=== PATIENT | female | born 2000 | race Caucasian/White ===

== ENCOUNTER 2023-06-11 01:55 | Inpatient (IN) | payer OTHER ==
[~2023-06-11] VITALS: Ht 172.7 cm; Wt 56.7 kg
[~2023-06-11 01:55] MED LIST: FERR-212 PO; PREN-543 PO
[2023-06-11] MEDS ORDERED: CARBOPROST 250 MCG/ML AMP IM PRN (02:25)
[2023-06-11] MEDS ORDERED: OXYTOCIN 20 UNITS in LACTATED RINGERS 1,000 ML IV SCH (02:25)
[2023-06-11] MEDS ORDERED: OXYTOCIN 10 UNITS/ML VIAL IM SCH (02:25)
[2023-06-11] MEDS ORDERED: METHYLERGONOVINE 0.2 MG/ML AMP IM PRN ×2 (02:25→07:30)
[2023-06-11] MEDS ORDERED: LACTATED RINGERS 500 ML IV ONE (02:25)
[2023-06-11] MEDS ORDERED: AMPICILLIN 2,000 MG in NACL 0.9% MINI-BAG PLUS 100 ML IV SCH (03:00)
[2023-06-11] MEDS: AMPICILLIN 2,000 MG VIAL ONE (03:00)
[2023-06-11 03:03] VITALS: RESP 18
[2023-06-11] MEDS: MORPHINE SULFATE 10 MG/ML VIAL IVP PRN (03:03)
[2023-06-11] MEDS: ONDANSETRON 4 MG/2 ML VIAL IVP PRN (03:11)
[2023-06-11 03:19] VITALS: BP 119/79; PULSE 73; TEMP 97.7
[2023-06-11 03:26] LABS: BASOPHILS % (AUTO) 0.4 % (0.0-2.0); EOSINOPHILS % (AUTO) 0.5 % (0.0-4.0); HEMATOCRIT 30.5 % (36-48); HEMOGLOBIN 10.2 g/dL (12.0-16.0); LYMPHOCYTES # (AUTO) 1.4 K/uL (2.5-16.5); MEAN CORPUSCULAR HEMOGLOBIN 26 pg (27-31); MEAN CORPUSCULAR HGB CONC 34 g/dL (33-37); MEAN CORPUSCULAR VOLUME 77.4 fL (80-94); MONOCYTES # (AUTO) 0.8 K/uL (0.8-1.0); NEUTROPHILS # (AUTO) 4.3 K/uL (1.8-7.7); NEUTROPHILS % (AUTO) 66.1 % (42.2-75.2); PLATELET COUNT (AUTO) 326 K/uL (140-450); RED BLOOD CELL COUNT(AUTO) 3.95 MIL/uL (4.20-5.40); RED CELL DISTRIBUTION WIDTH 18.3 % (11.6-13.7); WHITE BLOOD COUNT (AUTO) 6.5 K/uL (4.8-10.8)
[2023-06-11 03:41] LABS: APPEARANCE,URINE CLEAR (CLEAR); BILIRUBIN,URINE NEGATIVE (NEGATIVE); BLOOD, URINE TRACE-I (NEGATIVE); COLOR,URINE YELLOW (YELLOW); LEUKOCYTE ESTERASE ,URINE NEGATIVE (NEGATIVE); NITRITE, URINE NEGATIVE (NEGATIVE); PROTEIN,URINE NEGATIVE (NEGATIVE); UGLUCOSE NEGATIVE (NEGATIVE)
[2023-06-11] MEDS ORDERED: ROPIVACAINE 0.2%/NS PREMIX 200 ML EPI ONE (03:43)
[2023-06-11 03:55] LABS: CALCIUM 8.4 mg/dL (8.5-10.1); CARBON DIOXIDE 21.5 mmol/L (21-32); CREATININE 0.5 mg/dL (0.6-1.3); POTASSIUM 3.5 mmol/L (3.5-5.1)
[2023-06-11 03:56] LABS: ALBUMIN 2.2 g/dL (3.4-5.0)
[2023-06-11 03:59] LABS: INR 0.8 (0.8-1.2); PARTIAL THROMBOPLASTIN TIME 24.9 secs (22-35.6); PROTHROMBIN TIME 8.5 secs (10.8-13.4)
[2023-06-11 04:04] LABS: BACTERIA,URINE 10-30 (MOD) /HPF (None Seen); MUCUS,URINE 1+ /LPF (None Seen); SQUAMOUS EPITHELIAL CELL,UR 0-3 (FEW) /LPF (0-3 (FEW)); WBC,URINE 0-5 /HPF (0-5)
[2023-06-11 04:14] LABS: TOTAL BILIRUBIN 0.1 mg/dL (0.0-1.0)
[2023-06-11 04:15] LABS: TOTAL PROTEIN, SERUM 7.1 g/dL (6.4-8.2)
[2023-06-11] MEDS ORDERED: OXYTOCIN 20 UNITS/LR PREMIX 1,000 ML IV ONE (04:17)
[2023-06-11] MEDS ORDERED: LIDOCAINE 1% 500 MG/50 ML VIAL ONE (04:18)
[2023-06-11] MEDS: LACTATED RINGERS 1,000 ML IV SCH (04:48)
[2023-06-11] MEDS ORDERED: CLINDAMYCIN 900 MG in DEXTROSE 5% 100 ML IV SCH (05:00)
[2023-06-11] MEDS: AMPICILLIN 1,000 MG VIAL ONE (06:56)
[2023-06-11] MEDS ORDERED: MEASLES, MUMPS, AND RUBELLA 1 VIAL SQVAC ONE (07:30)
[2023-06-11] MEDS ORDERED: BENZOCAINE/MENTHOL 20%-0.5% 60 GM CAN TP PRN (07:30)
[2023-06-11] MEDS ORDERED: METHYLERGONOVINE 0.2 MG TAB PO PRN (07:30)
[2023-06-11] MEDS ORDERED: AMPICILLIN 1,000 MG in NACL 0.9% MINI-BAG PLUS 50 ML IV SCH (08:00)
[2023-06-11] MEDS: DOCUSATE SOD/SENNA 50/8.6 MG 1 TAB PO PRN (16:12)
[2023-06-11] MEDS: IBUPROFEN 800 MG TAB PO PRN (16:13)
[2023-06-12 08:03] LABS: HEMATOCRIT 30.2 % (36-48)
[2023-06-12 08:08] LABS: HEPATITIS B SURFACE ANTIGEN Negative (Negative)
[2023-06-15 11:31] LABS: RUBELLA AB IGG Non-Immune (<5) index (<0.9 - 0.99)
== END 2023-06-12 13:55 | disposition home or self-care (01) | DRG 560 ==
LOC: MLD 01:55 → MFCC 08:46
PROVIDERS: ADMIT Obstetrics & Gynecology; ATTEND Obstetrics & Gynecology
PROC: 10E0XZZ Delivery of Products of Conception, External Approach (ICD-10-PCS; principal; 2023-05-11)
DX: O77.0 Labor and delivery complicated by meconium in amniotic fluid (principal); Z37.0 Single live birth; Z20.822 Contact with and (suspected) exposure to COVID-19; Z3A.40 40 weeks gestation of pregnancy
CPT/HCPCS: 36415; 51702; 59409; 80053; 81001; 85018; 85025; 85610; 85730; 86592; 86762; 86886; 86900; 86901; 87086; 87340; 87653-90; J0290; J2001; J2270; J2405; J2590; J2795